=== PATIENT | male | born 1975 | race Caucasian/White ===

== ENCOUNTER 2020-11-12 23:10 | Emergency (ER) | payer OTHER ==
[~2020-11-12] VITALS: Ht 170.2 cm; Wt 88.5 kg
[2020-11-12 23:24] VITALS: BP 140/78; Ht 170.2 cm; Wt 88.5 kg
== END 2020-11-13 01:48 | disposition left against medical advice (07) ==
LOC: ED 23:10
DX: Z53.21 Procedure and treatment not carried out due to patient leaving prior to being seen by health care provider (principal)